=== PATIENT | male | born 1950 | race Caucasian/White ===

== ENCOUNTER 2018-10-04 16:40 | Emergency (ER) | payer MEDICARE ==
[~2018-10-04] VITALS: Ht 180.3 cm; Wt 81.8 kg
[2018-10-04 16:51] VITALS: BP 138/67; Ht 180.3 cm; Wt 81.8 kg
[2018-10-04] MEDS ORDERED: ZPAK PO (20:45)
[2018-10-04] MEDS ORDERED: MECLIZINE HCL12.5 MG PO (20:45)
[2018-10-04] MEDS ORDERED: MEDROL DOSE PACK4 MG PO (20:45)
== END 2018-10-04 21:05 | disposition home or self-care (01) ==
LOC: D.ER 16:40
DX: F07.81 Postconcussional syndrome (principal); S16.1XXA Strain of muscle, fascia and tendon at neck level, initial encounter; X58.XXXA Exposure to other specified factors, initial encounter; Y93.89 Activity, other specified; Y92.89 Other specified places as the place of occurrence of the external cause; J01.90 Acute sinusitis, unspecified; F17.200 Nicotine dependence, unspecified, uncomplicated